=== PATIENT | male | born 1960 | race Caucasian/White ===

== ENCOUNTER → 2019-03-08 | Outpatient (CLI) | payer BC | LOC: COL.RAD 12:45 | DX: R59.0 Localized enlarged lymph nodes (principal); Z85.828 Personal history of other malignant neoplasm of skin ==

== ENCOUNTER → 2019-03-16 | Outpatient (CLI) | payer BC ==
[~2019-03-16] VITALS: Ht 188 cm; Wt 122.4 kg
[~2019-03-16] MED LIST: B-121000 MCG PO; COREG 25MG25 MG/TAB PO; FERROUS GL325 MG/TAB PO; HYGROTON 2525 MG/TAB PO; LIPITOR 40MG TA40 MG PO; MICARDIS80 MG PO; MULTI VITAMINS1 TAB PO; REVATIO20 MG PO; VITAMIN B COMPL1 T16 PO; WELLBUTRIN SR150 M1 PO
[2019-03-16 10:15] VITALS: BP 138/87; PULSE 76
[2019-03-16 11:17] VITALS: BP 149/90; PULSE 69
--- NOTE | 2019-03-16 11:30 | NUR ---
went over dc instructions again, no questions. pt took to pov ambulatory
== END ==
LOC: COL.RAD 03-12 12:15
DX: K11.8 Other diseases of salivary glands (principal); Z85.828 Personal history of other malignant neoplasm of skin

== ENCOUNTER → 2019-03-19 | Outpatient (CLI) | payer BC | LOC: COL.RAD 14:30 | DX: C76.0 Malignant neoplasm of head, face and neck (principal); C77.0 Secondary and unspecified malignant neoplasm of lymph nodes of head, face and neck; R59.0 Localized enlarged lymph nodes; Z98.890 Other specified postprocedural states | CPT/HCPCS: Q9967 ==

== ENCOUNTER 2020-02-17 12:45 | Outpatient (RCR) | payer BC | END 2020-05-17 | disposition home or self-care (01) | LOC: MKS.ESL.PT | DX: R59.0 Localized enlarged lymph nodes (principal); Z85.828 Personal history of other malignant neoplasm of skin ==

== ENCOUNTER → 2021-03-13 | Outpatient (CLI) | payer BC ==
[~2021-03-13] MED LIST changes: +CYMBALTA 30MG30 MG PO; +DAZIDOX10 MG PO; +DEPO-TESTOS200 MG/M1 IM; +DUO-KAPS1 CAP PO; +GARLIC100 MG PO; +GINKGO3 PO; +MASON NATURAL1200 MG PO; +MASON NATURAL2000 IU PO; -MULTI VITAMINS1 TAB PO; +NATURAL E400 IU PO; +NORVASC 10MG10 MG PO; +NUVIGIL250 MG PO; +VITAMIN B COMPL1 SGL PO; -VITAMIN B COMPL1 T16 PO; +VITAMIN B-6100 MG PO; +VITAMINC1000TA PO; +[UNRECOGNIZED DRUG - OTHER]; +[UNRECOGNIZED DRUG - OTHER] PO
== END ==
LOC: COL.RAD 11:15
DX: R59.0 Localized enlarged lymph nodes (principal); C44.92 Squamous cell carcinoma of skin, unspecified; Z98.890 Other specified postprocedural states
CPT/HCPCS: Q9967

== ENCOUNTER → 2021-03-26 | Outpatient (CLI) | payer BC | LOC: MC.RAD 09:58 | DX: R59.0 Localized enlarged lymph nodes (principal) ==

== ENCOUNTER → 2021-07-12 | Outpatient (CLI) | payer BC ==
[~2021-07-12] VITALS: Ht 188 cm; Wt 110.0 kg
[2021-07-12 11:42] VITALS: BP 155/82; PULSE 77; TEMP 98.7
[2021-07-12 13:15] VITALS: BP 149/83; PULSE 70
== END ==
LOC: COL.RAD 11:13
DX: C77.9 Secondary and unspecified malignant neoplasm of lymph node, unspecified (principal)

== ENCOUNTER → 2021-08-22 | Outpatient (CLI) | payer BC | LOC: COL.RAD 07:24 | DX: H74.8X3 Other specified disorders of middle ear and mastoid, bilateral (principal); C44.329 Squamous cell carcinoma of skin of other parts of face | CPT/HCPCS: A9585 ==

== ENCOUNTER → 2022-01-30 | Outpatient (CLI) | payer BC, MEDICARE, MEDICAID | LOC: COL.RAD 09:45 | DX: R10.13 Epigastric pain (principal); R11.0 Nausea ==

== ENCOUNTER → 2022-02-08 | Outpatient (CLI) | payer BC, MEDICAID | LOC: COL.RAD 02-07 10:00 | DX: R10.13 Epigastric pain (principal) | CPT/HCPCS: A9537 ==

== ENCOUNTER 2022-07-29 08:22 | Day surgery (SDC) | payer MEDICARE, MEDICAID ==
[~2022-07-29] VITALS: Ht 188 cm; Wt 110.1 kg
[2022-07-29] MEDS ORDERED: TOPROL XL 50MG50 MG PO (09:37)
[2022-07-29 10:14] VITALS: BP 137/97; PULSE 85; TEMP 98.4
[2022-07-29 11:04] VITALS: BP 134/96; PULSE 86; TEMP 98.4
[2022-07-29] MEDS ORDERED: PERCOCET 325 MG1 TA2 PO (11:10)
[2022-07-29] MEDS ORDERED: COLACE 100100 MG/CAP PO (11:10)
[2022-07-29] MEDS ORDERED: METAMUCIL MULT425 GM PO (11:11)
[2022-07-29 11:19] VITALS: BP 141/87; PULSE 69
--- NOTE | 2022-07-29 11:24 | NUR ---
1104 - PT arrives from procedure w/ [employer]URAL ANALYST; PT is drowsy but oriented. Monitors applied and vitals obtained. PT states mild discomfort to affected area. PT provided ice water per request and is tolerating well. PT oriented to room and call castillo, within reach on his lap near hand. Side rails x2. Will monitor per intervals 1119 - PT is sleeping unless aroused. Vitals obtained. Side rails x2. Call castillo remains within reach. PT called and was updated per PT request.
[2022-07-29 11:34] VITALS: BP 143/86; PULSE 69
[2022-07-29 11:49] VITALS: BP 140/78; PULSE 82
[2022-07-29 12:05] VITALS: BP 129/76; PULSE 79
--- NOTE | 2022-07-29 12:21 | NUR ---
1134 - VSS. PT provided snack and is tolerating well. Denies nasuea. States gas pain, however, denies need for intervention. Side rails x2. Call remains within reach if needed. 1149 - VSS. PT has finished snack and drink. Expressed desire to be discharged. Call castillo remains within reach, side rails x2. 1205 - VSS. IV discontinued. Catheter tip intact. Pressure bandage applied; no redness or swelling noted. DC instructions and educational material reviewed w/ PT who verbalized understanding the material. PT refused RN assistance changing into personal clothes. PT did not need assistance getting up and out of bed, PT is ambulating independtly in room. Call castillo remains within reach if needed. Awaiting for pickers material handlers.
--- NOTE | 2022-07-29 12:40 | NUR ---
1235 - [place] [facility] [place] by Monica LARSON. PT has DC packet and personal belongings; PT was transferred into the care of Eliza, who is driving private truck. PT provided w/ additional pack of non-slip socks per PT request.
== END 2022-07-29 12:40 | disposition home or self-care (01) ==
LOC: SDCO 08:22
DX: K64.8 Other hemorrhoids (principal); K62.5 Hemorrhage of anus and rectum; G47.33 Obstructive sleep apnea (adult) (pediatric); I10 Essential (primary) hypertension; Z85.828 Personal history of other malignant neoplasm of skin
CPT/HCPCS: J2704; J7120

== ENCOUNTER → 2023-01-14 | Outpatient (CLI) | payer MEDICARE, MEDICAID ==
--- NOTE | 2023-01-09 08:14 | NUR ---
Attempted to reach patient x2 line busy.
[~2023-01-14] VITALS: Ht 188 cm; Wt 113.0 kg
[~2023-01-14] MED LIST changes: +COLACE 100100 MG/CAP PO; +METAMUCIL MULT425 GM PO; +PERCOCET 325 MG1 TA2 PO; +TOPROL XL 50MG50 MG PO
[2023-01-14 12:30] VITALS: BP 136/68; PULSE 80; TEMP 98.6
--- NOTE | 2023-01-14 13:15 | NUR ---
pt taken to US, Dr Rich talked with pt on not finding lymph node to biopsy and will send report to his Dr. pt was discharged amb.
== END ==
LOC: COL.RAD 11:44
DX: R59.0 Localized enlarged lymph nodes (principal)